=== PATIENT | male | born 1970 | race American Indian/Alaskan Native ===

== ENCOUNTER 2016-09-13 18:34 | Emergency (ER) | payer OTHER ==
[2016-09-13 18:43] VITALS: BP 118/74
== END 2016-09-13 21:35 | disposition left against medical advice (07) ==
LOC: ED 18:34
DX: R20.0 Anesthesia of skin (principal); V89.2XXA Person injured in unspecified motor-vehicle accident, traffic, initial encounter; Y93.9 Activity, unspecified; Y99.9 Unspecified external cause status; Z53.21 Procedure and treatment not carried out due to patient leaving prior to being seen by health care provider; Y92.410 Unspecified street and highway as the place of occurrence of the external cause